=== PATIENT | male | born 1980 | race African-American/Black ===

== ENCOUNTER 2024-03-05 11:17 | Emergency (ER) | payer SELFPAY ==
[~2024-03-05] VITALS: Ht 180.3 cm; Wt 81.0 kg
[2024-03-05 11:26] VITALS: O2SAT 100
[2024-03-05] MEDS: SODIUM CHLORIDE 0.9% 1,000 ML IV ONE (14:00)
[2024-03-05] MEDS: METOCLOPRAMIDE HCL 10MG/2ML VIAL IV ONE (14:00)
[2024-03-05] MEDS: KETOROLAC 30MG/ML VIAL IV ONE (14:00)
[2024-03-05] MEDS ORDERED: IBUP-2030 MT (14:52)
[2024-03-05 15:22] VITALS: BP 124/87; PULSE 85; RESP 18; TEMP 98.6
== END 2024-03-05 15:25 | disposition home or self-care (01) ==
LOC: ER 13:00
DX: R51.9 Headache, unspecified (principal); H61.22 Impacted cerumen, left ear
CPT/HCPCS: 96374; 96375; 99284; J1885; J2765; J7030; Z7610 ×2

== ENCOUNTER 2025-04-05 23:30 | Emergency (ER) | payer SELFPAY ==
[~2025-04-05] VITALS: Ht 175.3 cm; Wt 183.0 kg
[~2025-04-05 23:30] MED LIST: IBUP-2030 MT
[2025-04-05 23:41] VITALS: O2SAT 100
[2025-04-05 23:54] VITALS: BP 132/90; PULSE 68; RESP 18; TEMP 36.7; O2SAT 99
[2025-04-06] MEDS: METOCLOPRAMIDE HCL 10MG TABLET PO ONE (02:04)
[2025-04-06] MEDS: KETOROLAC 15MG/ML VIAL IM ONE (02:04)
[2025-04-06] MEDS ORDERED: NAPR-1176 MT (03:06)
== END 2025-04-06 04:03 | disposition home or self-care (01) ==
LOC: ER 23:30
DX: R51.9 Headache, unspecified (principal); R05.9 Cough, unspecified; Z79.1 Long term (current) use of non-steroidal anti-inflammatories (NSAID)
CPT/HCPCS: 99283; 96372; J1885; J8597